=== PATIENT | male | born 1995 | race African-American/Black ===

== ENCOUNTER 2023-05-21 12:44 | Emergency (ER) | payer SELFPAY ==
[~2023-05-21] VITALS: Ht 188 cm; Wt 100.0 kg
[2023-05-21] MEDS ORDERED: IBUPROFEN 600MG TABLET PO ONE (13:15)
[2023-05-21] MEDS ORDERED: ACETAMINOPHEN 325MG TABLET PO ONE (13:15)
[2023-05-21] MEDS ORDERED: IPRATROPIUM BROMIDE (0.02%) 0.5MG/2.5ML NEB HHN STA (13:41)
[2023-05-21] MEDS ORDERED: ALBUTEROL (0.083%) 2.5MG/3ML NEB HHN STA (13:41)
[2023-05-21 14:19] LABS: BASOPHILS % 0.3 % (0.0-2.0); EOSINOPHILS % 1.4 % (0.0-5.0); HEMATOCRIT. 43.4 % (42.0-52.0); HEMOGLOBIN. 14.8 g/dL (14.0-18.0); LYMPHOCYTES % 17.3 % (20.0-50.0); MEAN CORPUSCULAR HEMOGLOBIN 28.1 pg (28.0-32.0); MEAN CORPUSCULAR HGB CONC 34.1 g/dL (31.0-37.0); MEAN CORPUSCULAR VOLUME 82.5 fL (80.0-94.0); MEAN PLATELET VOLUME 8.9 fl (7.4-10.4); MONOCYTES % 5.6 % (2.0-8.0); NEUTROPHILS % 75.4 % (40.0-76.0); PLATELET 217 x1000/uL (130-400); RED BLOOD CELL COUNT 5.26 mill/uL (4.7-6.1); RED CELL DISTRIBUTION WIDTH 13.9 % (11.6-14.6); WHITE BLOOD COUNT 11.3 x1000/uL (4.5-11.0)
[2023-05-21 14:23] LABS: D-DIMER 0.32 mg/L FEU (<0.50); PROTHROMBIN TIME 10.9 sec (9.6-11.0)
[2023-05-21 14:29] LABS: ALANINE AMINOTRANSFERASE 38 IU/L (10-49); ALBUMIN 4.8 g/dL (3.2-4.8); ASPARTATE AMINOTRANSFERASE 38 IU/L (<34); BILIRUBIN TOTAL 1.1 mg/dL (0.1-1.0); CALCIUM 9.6 mg/dL (8.7-10.4); CARBON DIOXIDE 30 mEq/L (21-32); CHLORIDE 103 mEq/L (98-107); CREATININE 1.1 mg/dL (0.6-1.3); GLUCOSE 98 mg/dL (70-105); POTASSIUM 3.9 mEq/L (3.5-5.1); PROTEIN TOTAL 8.3 g/dL (6.0-8.3); SODIUM 137 mEq/L (136-145); TROPONIN I HIGH SENSITIVITY < 4 ng/L (3.0-53); UREA NITROGEN BLOOD 9 mg/dL (9-23)
[2023-05-21 15:10] VITALS: PULSE 96; RESP 20; O2SAT 96
[2023-05-21] MEDS ORDERED: ALBU6.7H15 INH (16:06)
[2023-05-21] MEDS ORDERED: NAPR220C61 MT (16:06)
[2023-05-21 17:22] VITALS: BP 123/78; PULSE 90; RESP 17; TEMP 98.7
== END 2023-05-21 17:24 | disposition home or self-care (01) ==
LOC: ER 12:44
DX: R05.9 Cough, unspecified (principal); R07.89 Other chest pain; J45.909 Unspecified asthma, uncomplicated; Z98.890 Other specified postprocedural states; Z20.822 Contact with and (suspected) exposure to COVID-19
CPT/HCPCS: 80053; 85025; 85379; 85610; 84484; 87804 ×2; 36415; 71045; 94640; 93005; 99285; 87426; Z7610 ×3

== ENCOUNTER 2024-08-20 16:24 | Emergency (ER) | payer SELFPAY ==
[~2024-08-20] VITALS: Ht 188 cm; Wt 68.0 kg
[~2024-08-20 16:24] MED LIST: ALBU6.7H15 INH; NAPR220C61 MT
[2024-08-20 16:26] VITALS: O2SAT 100
[2024-08-20] MEDS: CYCLOBENZAPRINE 10MG TABLET PO ONE (20:18)
[2024-08-20] MEDS: KETOROLAC 15MG/ML VIAL IM ONE (20:18)
[2024-08-20 21:58] VITALS: BP 125/81; PULSE 106; RESP 20; TEMP 37.1; O2SAT 100
== END 2024-08-20 22:07 | disposition home or self-care (01) ==
LOC: ER 16:24
DX: M54.6 Pain in thoracic spine (principal); J45.909 Unspecified asthma, uncomplicated; Z79.899 Other long term (current) drug therapy; Z98.890 Other specified postprocedural states; V89.2XXA Person injured in unspecified motor-vehicle accident, traffic, initial encounter; Y93.89 Activity, other specified; Y92.410 Unspecified street and highway as the place of occurrence of the external cause; Y99.8 Other external cause status
CPT/HCPCS: 72070; 72100; 96372; 99284; J1885; Z7610